=== PATIENT | male | born 2000 | race Caucasian/White ===

== ENCOUNTER 2018-03-16 10:58 | Emergency (ER) | payer OTHER ==
[2018-03-16 11:06] VITALS: BP 107/63; PULSE 63; TEMP 98.1; BMI 24.3
[2018-03-16] MEDS ORDERED: predniSONE 20 MG TABLET (UD) PO ONE (11:51)
[2018-03-16] MEDS ORDERED: ALBUTEROL SO4 2.5/IPRATROPIUM 0.5 INH SOL 3 ML VIAL.NEB. NEB ONE ×2 (11:51→11:54)
--- NOTE | 2018-03-16 11:53 | PDOC ---
History of Present Illness - General Chief Complaint: Respiratory Stated Complaint: CONGESTION Time Seen by Provider: 03/16/18 11:32 History Source: Patient, Family Exam Limitations: No Limitations - History of Present Illness Initial Comments: 03/16/18 11:53 Patient came in for evaluation of worsened ALLERGIC rhinitis, itchy eyes and congestion over the past few days. States also suffers from pollen ALLERGIES and is use some Benadryl with minimal resolved. Denies fever, denies any. The drainage from nose, but has a moist nonproductive cough. States last night felt tight and felt like he was wheezing. Timing/Duration: reports: getting worse Severity: reports: mild, moderate Possible Cause: Yes: no prior episodes, allergen exposure, chronic episodes, occasional episodes Modifying Factors: improves with: activity, coughing Associated Symptoms: reports: denies symptoms, cough, nasal congestion, wheezing. denies: fever/chills Past History - Travel Traveled outside of the country in the last 30 days: No Close contact w/someone who was outside of country & ill: No - Past Medical History Allergies/Adverse Reactions: Allergies Allergy/AdvReac Type Severity Reaction Status Date / Time No Known Allergies Allergy Verified 03/16/18 11:06 Home Medications: Ambulatory Orders Albuterol Sulfate Inhaler - [Ventolin HFA Inhaler -] 1 - 2 inh PO Q4H #1 inhaler 03/16/18 Cetirizine HCl/Pseudoephedrine [Allergy+Congestion Relf-D Tab] 1 each PO DAILY # 30 tab 03/16/18 predniSONE [Deltasone -] 20 mg PO BID #8 tablet 03/16/18 COPD: No - Suicide/Smoking/Psychosocial Hx Smoking History: Never smoked Review of Systems - Review of Systems Able to Perform ROS?: Yes Is the patient limited Beninese proficient: Yes Constitutional: Yes: Symptoms Reported, See HPI, Malaise. No: Fever HEENTM: Yes: Symptoms Reported, See HPI, Nose Congestion, Throat Pain Respiratory: Yes: Symptoms reported, See HPI, Cough, Wheezing ABD/GI: Yes: Symptoms Reported Musculoskeletal: Yes: Symptoms Reported, See HPI All Other Systems: Reviewed and Negative *Physical Exam - Vital Signs Last Vital Signs Temp Pulse Resp BP Pulse Ox 98.1 F 63 18 107/63 98 03/16/18 11:03 03/16/18 11:03 03/16/18 11:03 03/16/18 11:03 03/16/18 11:03 - Physical Exam General Appearance: Yes: Nourished, Appropriately Dressed, Apparent Distress, Mild Distress, Moderate Distress HEENT: positive: LIZ (lastly, tearing, and mildly erythematous), Pharynx Normal (no redness, swelling or exudate, has some posterior sinus drainage that looks to be thick and clear) Neck: positive: Supple, Lymphadenopathy (R), Lymphadenopathy (L). negative: Tender Respiratory/Chest: positive: Lungs Clear, Decreased Breath Sounds Cardiovascular: positive: Regular Rate Gastrointestinal/Abdominal: positive: Soft Musculoskeletal: positive: Normal Inspection. negative: CVA Tenderness Extremity: positive: Normal Capillary Refill, Normal Inspection Integumentary: positive: Dry, Warm, Pale Neurologic: positive: crap shooter II-XII NML intact Progress Note - Progress Note Progress Note: ALLERGIC rhinitis Medical Decision Making - Medical Decision Making 03/16/18 much improved after DuoNeb and prednisone. We'll continue antihistamine , prednisone and albuterol until symptoms resolve *DC/Admit/Observation/Transfer Diagnosis at time of Disposition: Allergic rhinitis Qualifiers: Allergic rhinitis trigger: unspecified Allergic rhinitis seasonality: seasonal Qualified Code(s): J30.2 - Other seasonal allergic rhinitis - Discharge Dispostion Disposition: HOME Condition at time of disposition: Stable Decision to Admit order: No - Prescriptions Prescriptions: Albuterol Sulfate Inhaler - [Ventolin HFA Inhaler -] 1 - 2 inh PO Q4H #1 inhaler Cetirizine HCl/Pseudoephedrine [Allergy+Congestion Relf-D Tab] 1 each PO DAILY # 30 tab predniSONE [Deltasone -] 20 mg PO BID #8 tablet - Referrals Referrals: Ok Funes MD [Primary Care Provider] - - Patient Instructions Printed Discharge Instructions: DI for Allergic Rhinitis Additional Instructions: Rest, drink lots of fluids: Teas, water, soups Saltwater gargles. Consider humidifier in room at night Steamy showers/seem to face break up mucus Avoid contact with allergens, exposure to pollens, close windows on a windy day Lots of handwashing and good hygiene Continue [id number] medications for symptomatic relief- may use allergic eyedrops for itching I Continue antihistamines daily until pollen season is over; Zyrtec, Claritin, Martha during the daytime and Benadryl at nighttime as will make sleepy Tylenol or Motrin for fever and pain Followup with private physician in one to 2 days as needed Consider following up with an manual plate filler/lock setter for skin testing and possible allergy shots Return to emergency department for worsened symptoms, fevers, dehydration - Post Discharge Activity Forms/Work/School Notes: Back to Work
[2018-03-16] MEDS ORDERED: predniSONE 20 MG TABLET (UD) ONE ×2 (11:54→11:57)
== END 2018-03-16 12:46 | disposition home or self-care (01) ==
LOC: JERFT 10:58
DX: J30.2 Other seasonal allergic rhinitis (principal)
CPT/HCPCS: 99281-25

== ENCOUNTER 2018-08-19 04:07 | Emergency (ER) | payer SELFPAY ==
--- NOTE | 2018-08-19 04:18 | PDOC ---
Medical Decision Making - Medical Decision Making 08/19/18 04:17 Patient seen by the advanced practice provider under my direct supervision. Ancillary testing reviewed as necessary. I agree with plan as outlined by the advanced practice provider. *DC/Admit/Observation/Transfer Diagnosis at time of Disposition: Cough - Referrals Referrals: Ok Funes MD [Primary Care Provider] - - Patient Instructions - Post Discharge Activity
--- NOTE | 2018-08-19 04:26 | PDOC ---
History of Present Illness - General Stated Complaint: COUGH Time Seen by Provider: 08/19/18 04:12 History Source: Patient Exam Limitations: No Limitations - History of Present Illness Initial Comments: 08/19/18 04:22 HISTORY OF PRESENT ILLNESS: 18-year-old male denies medical history of presents emergency department for evaluation of dry cough for 3 weeks which is worsened over the past 5 days. Reports when he lays down the cough gets worse. He is tried taking [id number] cough suppressants and expectorants with minimal relief of symptoms. Patient also reports worsening scratchiness in his throat. Patient reports abdominal pain which worsens with coughing. He denies any fevers , chills. No recent travel or sick contacts. PAST MEDICAL HISTORY: Denies past medical history SURGICAL HISTORY: Denies ALLERGIES: No known drug allergies REVIEW OF SYSTEMS General/Constitutional: Denies fever or chills. Denies weakness, weight change. HEENT: see HPI Cardiovascular: Denies chest pain or shortness of breath. Respiratory:see HPI Gastrointestinal: Denies nausea, vomiting, diarrhea or constipation. Denies rectal bleeding. Genitourinary: Denies dysuria, frequency, or change in urination. Musculoskeletal: Denies joint or muscle swelling or pain. Denies neck or back pain. Skin and breasts: Denies rash or easy bruising. Neurologic: Denies headache, vertigo, loss of consciousness, or loss of sensation. Psychiatric: Denies depression or anxiety. Endocrine: Denies increased thirst. Denies abnormal weight change. Hematologic/Lymphatic: Denies anemia, easy bleeding, or history of blood clots. Allergic/Immunologic: Denies hives or skin allergy. Denies latex allergy. PHYSICAL EXAM General Appearance: Well-appearing, appropriately dressed. No apparent distress , no intoxication. HEENT: EOMI, PERRLA. Nasal congestion present. Mildly erythematous oropharynx. No lesions or exudates present. Cobblestoning present in the posterior oropharynx. No conjunctival pallor. No photophobia, scleral icterus. Neck: Supple. Trachea midline. No tenderness, rigidity, carotid bruit, stridor , lymphadenopathy, or thyromegaly. Respiratory/Chest: Lungs CTAB. No shortness of breath, chest tenderness, respiratory distress, accessory muscle use. No crackles, rales, rhonchi, stridor , wheezing, dullness Cardiovascular: RRR. S1, S2. No JVD, murmur, bradycardia, tachycardia. Vascular Pulses: Dorsalis-Pedis (R): 2+, Dorsalis-Pedis (L): 2+ Gastrointestinal/Abdominal: Normal bowel sounds. Abdomen soft, non-distended. No tenderness or rebound tenderness. No organomegaly, pulsatile mass, guarding, hernia, hepatomegaly, splenomegaly. Lymphatic: No adenopathy, tenderness. Musculoskeletal/Extremities: Normal inspection. FROM of all extremities, normal capillary refill. Pelvis Stable. No CVA tenderness. No tenderness to extremities, pedal edema, swelling, erythema or deformity. Integumentary: Appropriate color, dry, warm. No cyanosis, erythema, jaundice or rash Neurologic: tank calibrator II-XII intact. Fully oriented, alert. Appropriate mood/affect. Motor strength 5/5. No appreciable EOM palsy, facial droop or sensory deficit. Past History - Past Medical History Allergies/Adverse Reactions: Allergies Allergy/AdvReac Type Severity Reaction Status Date / Time No Known Allergies Allergy Verified 08/19/18 05:09 Home Medications: Ambulatory Orders Albuterol Sulfate Inhaler - [Ventolin HFA Inhaler -] 1 - 2 inh PO Q4H #1 inhaler 03/16/18 Cetirizine HCl/Pseudoephedrine [Allergy+Congestion Relf-D Tab] 1 each PO DAILY # 30 tab 03/16/18 predniSONE [Deltasone -] 20 mg PO BID #8 tablet 03/16/18 Benzonatate [Tessalon Pearls -] 200 mg PO TID #42 cap 08/19/18 COPD: No - Suicide/Smoking/Psychosocial Hx Smoking History: Never smoked Medical Decision Making - Medical Decision Making 08/19/18 04:25 A/P: 18-year-old male with cough for 3 weeks H&P is most consistent with upper respiratory infection with irritated airways due to mucous drainage. Symptoms were present for 3 weeks I will get a chest x- ray to rule out pneumonia. 08/19/18 05:42 Chest x-ray as read by me: Angles clear. Cardiac silhouette is within normal limits. No focal deficits worsens or consolidations present. I discussed the physical exam findings, ancillary test results and final diagnoses with the patient. I answered all of the patient's questions. The patient was satisfied with the care received and felt comfortable with the discharge plan and treatment plan. The patient will call their primary care physician within 24 hours to arrange follow-up and will return to the Emergency Department with any new, persistent or worsening symptoms. *DC/Admit/Observation/Transfer Diagnosis at time of Disposition: URI (upper respiratory infection) Qualifiers: URI type: unspecified viral URI Qualified Code(s): J06.9 - Acute upper respiratory infection, unspecified - Discharge Dispostion Disposition: HOME Condition at time of disposition: Fair - Prescriptions Prescriptions: Benzonatate [Tessalon Pearls -] 200 mg PO TID #42 cap - Referrals Referrals: Ok Funes MD [Primary Care Provider] - - Patient Instructions Additional Instructions: Rest, drink lots of fluids: Teas, water, soups, Pedialyte Saltwater gargles Steamy showers/seem to face break up mucus Avoid contact with others until fevers and cough resolved Lots of handwashing and good hygiene Continue [id number] medications for symptomatic relief Tylenol or Motrin for fever and pain Followup with private physician in one to 2 days as needed Return to emergency department for worsened symptoms, fevers, dehydration - Post Discharge Activity Forms/Work/School Notes: Back to Work
[2018-08-19 05:09] VITALS: BP 135/78; PULSE 77; TEMP 97.5; BMI 25.9
== END 2018-08-19 05:50 | disposition home or self-care (01) ==
LOC: JER 04:07
DX: J06.9 Acute upper respiratory infection, unspecified (principal); B97.89 Other viral agents as the cause of diseases classified elsewhere
CPT/HCPCS: 71046-TC-FY; 99281-25

== ENCOUNTER 2019-07-30 10:27 | Emergency (ER) | payer OTHER ==
[2019-07-30 10:34] VITALS: BP 119/71; PULSE 64; TEMP 97.4; BMI 23.6
--- NOTE | 2019-07-30 10:52 | PDOC ---
History of Present Illness - General Chief Complaint: Sore Throat Stated Complaint: THROAT Time Seen by Provider: 07/30/19 10:46 History Source: Patient - History of Present Illness Initial Comments: 07/30/19 11:34 19-year-old male complaining of nausea, sore throat, abdominal pain, generalized malaise for the last 3 days.Denies vomiting, diarrhea, fever, urinary symptoms, testicular pain Patient has a past medical history of asthma Past History - Past Medical History Allergies/Adverse Reactions: Allergies Allergy/AdvReac Type Severity Reaction Status Date / Time No Known Allergies Allergy Verified 07/30/19 10:34 Home Medications: Ambulatory Orders Albuterol Sulfate Inhaler - [Ventolin HFA Inhaler -] 1 - 2 inh PO Q4H #1 inhaler 03/16/18 Cetirizine HCl/Pseudoephedrine [Allergy+Congestion Relf-D Tab] 1 each PO DAILY #30 tab 03/16/18 predniSONE [Deltasone -] 20 mg PO BID #8 tablet 03/16/18 Benzonatate [Tessalon Pearls -] 200 mg PO TID #42 cap 08/19/18 COPD: No - Psycho Social/Smoking Cessation Hx Smoking History: Never smoked Have you smoked in the past 12 months: No Information on smoking cessation initiated: No Hx Alcohol Use: No Drug/Substance Use Hx: No *Physical Exam - Vital Signs Last Vital Signs Temp Pulse Resp BP Pulse Ox 97.4 F L 64 17 119/71 99 07/30/19 10:32 07/30/19 10:32 07/30/19 10:32 07/30/19 10:32 07/30/19 10:32 - Physical Exam General Appearance: Yes: Appropriately Dressed HEENT: positive: Pharyngeal Erythema (with tonsillar edema. no kissing tonsils) Respiratory/Chest: positive: Lungs Clear, Normal Breath Sounds Gastrointestinal/Abdominal: positive: Normal Bowel Sounds, Tender (RLQ pain), Soft Extremity: positive: Normal Capillary Refill, Normal Inspection, Normal Range of Motion Integumentary: positive: Normal Color, Dry, Warm Neurologic: positive: Fully Oriented, Alert, Normal Mood/Affect ED Treatment Course - LABORATORY CBC & Chemistry Diagram: 07/30/19 11:50 07/30/19 11:50 Medical Decision Making - Medical Decision Making A: abdominal pain; strep P: cbc cmp rapid strep IVF zofran tylenol 07/30/19 11:42 patient signed out to Elida MARES 07/30/19 14:49 Discharge - Discharge Information Problems reviewed: Yes Clinical Impression/Diagnosis: Viral URI Abdominal pain Qualifiers: Abdominal location: right lower quadrant Qualified Code(s): R10.31 - Right lower quadrant pain Condition: Stable Disposition: HOME - Follow up/Referral - Patient Discharge Instructions Patient Printed Discharge Instructions: DI for Viral Upper Respiratory Infection -- Adult, DI for Abdominal Pain-Adult Additional Instructions: Thank you for choosing [facility]. It was a pleasure taking care of you. You have viral infection Recommend salt water gargles, lozenges, lemon honey tea, Robitussin as needed for symptoms Recommend rest and hydration Follow-up with your doctor in 2 days Return to the Emergency Department if your symptoms worsen or persist or have other concerning symptoms. - Post Discharge Activity
[2019-07-30] MEDS ORDERED: SODIUM CHLORIDE 1,000 ML IV STA (11:25)
[2019-07-30] MEDS ORDERED: ONDANSETRON *ODT* 4 MG TABLET SL ONE (11:25)
[2019-07-30] MEDS ORDERED: ACETAMINOPHEN 1000 MG/100 ML VIAL (NON FORMULARY) IVPB ONE (11:28)
[2019-07-30] MEDS ORDERED: SODIUM CHLORIDE FOR INHALATION 3 ML VIAL.NEB IH ONE (11:54)
[2019-07-30] MEDS ORDERED: ONDANSETRON *ODT* 4 MG TABLET ONE (12:09)
[2019-07-30] MEDS ORDERED: ACETAMINOPHEN INJECTION 100 ML IVPB ONE (12:09)
[2019-07-30 12:10] LABS: BASO % 0.6 % (0-2.0); EOS % 2.5 % (0-4.5); HEMATOCRIT 45.6 % (35.4-49); HEMOGLOBIN 15.9 GM/dL (11.7-16.9); LYMPH % 21.7 % (8-40); MCH 31.1 pg (25.7-33.7); MCHC 34.9 g/dl (32.0-35.9); MEAN CELL VOLUME 89.2 fl (80-96); MEAN PLT VOLUME 7.4 fl (7.5-11.1); NEUT % 65.2 % (42.8-82.8); PLATELET COUNT 200 K/MM3 (134-434); RBC 5.11 M/mm3 (4.00-5.60); RDW 12.2 % (11.9-15.9)
--- NOTE | 2019-07-30 12:10 | PDOC ---
*Physical Exam - Vital Signs Last Vital Signs Temp Pulse Resp BP Pulse Ox 97.4 F L 64 17 119/71 99 07/30/19 10:32 07/30/19 10:32 07/30/19 10:32 07/30/19 10:32 07/30/19 10:32 - Physical Exam General Appearance: No: Apparent Distress HEENT: positive: Normal Voice, Pharyngeal Erythema (minimal), Nasal Congestion. negative: Muffled/Hoarse voice, Tonsillar Exudate, Tonsillar Erythema Respiratory/Chest: positive: Lungs Clear, Normal Breath Sounds. negative: Respiratory Distress Cardiovascular: positive: Regular Rhythm, Regular Rate, S1, S2. negative: Murmur Gastrointestinal/Abdominal: positive: Tender (along RLQ), Soft. negative: Distended Integumentary: positive: Normal Color Neurologic: positive: Alert <Elida Cifuentes - Last Filed: 07/30/19 12:51> - Vital Signs Last Vital Signs Temp Pulse Resp BP Pulse Ox 97.4 F L 64 17 119/71 99 07/30/19 10:32 07/30/19 10:32 07/30/19 10:32 07/30/19 10:32 07/30/19 10:32 <Chico Orosco - Last Filed: 07/30/19 14:54> ED Treatment Course - LABORATORY CBC & Chemistry Diagram: 07/30/19 11:50 07/30/19 11:50 - RADIOLOGY Radiology Studies Ordered: Category Date Time Status PELVIC / BLADDER US [US] Stat Ultrasound 07/30/19 11:54 Ordered <Elida Cifuentes - Last Filed: 07/30/19 12:51> - LABORATORY CBC & Chemistry Diagram: 07/30/19 11:50 07/30/19 11:50 - ADDITIONAL ORDERS Additional order review: Laboratory Results 07/30/19 11:50 Sodium 140 Potassium 4.4 Chloride 104 Carbon Dioxide 33 H Anion Gap 3 L BUN 14.8 Creatinine 0.9 Est GFR (CKD-EPI)AfAm 141.01 Est GFR (CKD-EPI)NonAf 121.66 Random Glucose 80 Calcium 9.2 Total Bilirubin 0.5 AST 15 ALT 51 Alkaline Phosphatase 57 Total Protein 7.7 Albumin 4.3 Lipase 110 07/30/19 11:50 RBC 5.11 MCV 89.2 MCHC 34.9 RDW 12.2 MPV 7.4 L Neutrophils % 65.2 Lymphocytes % 21.7 Monocytes % 10.0 Eosinophils % 2.5 Basophils % 0.6 - Medications Given in the ED: ED Medications Discontinued Medications Generic Name Dose Route Start Last Admin Trade Name Percy PRN Reason Stop Dose Admin Acetaminophen 1,000 mg 07/30/19 11:28 07/30/19 12:10 Ofirmev Injection - IVPB 07/30/19 11:29 1,000 mg ONCE ONE Administration Sodium Chloride 1,000 mls @ 1,000 mls/hr 07/30/19 11:25 07/30/19 12:10 Normal Saline - IV 07/30/19 12:24 1,000 mls/hr ASDIR STA Administration Ondansetron HCl 4 mg 07/30/19 11:25 07/30/19 12:10 Zofran Odt - SL 07/30/19 11:26 4 mg ONCE ONE Administration Sodium Chloride 3 ml 07/30/19 11:54 07/30/19 12:37 Normal Saline For Inhalation - IH 07/30/19 11:55 3 ml ONCE ONE Administration <Chico Orosco - Last Filed: 07/30/19 14:54> Medical Decision Making - Medical Decision Making Patient signed out to me by CESAR Bernabe Patient with 3 days for sore throat, dry cough along with RLQ abdominal pain, nausea and decreased appetite; denies fever, vomiting, diarrhea, urinary sxs, testicular pain; denies prior abdominal surgeries Rapid strep negative Patient pending results of labs Will get Zofran for nausea and Tylenol for pain Patient also endorses dry cough and dryness in throat; lungs CTAB; will trial saline neb and reassess 07/30/19 12:09 Labs reviewed unremarkable On reassessment abdomen is soft and nontender Patient denies any pain and is feeling better Return precautions discussed with patient Stable for discharge 07/30/19 12:51 <Elida Cifuentes - Last Filed: 07/30/19 12:51> - Medical Decision Making 07/30/19 14:53 The patient was seen and evaluated in conjunction with VISHNU Cifuentes under my direct supervision, ancillary studies were reviewed.I agree with the plan as outlined by VISHNU Cifuentes . <Chico Orosco - Last Filed: 07/30/19 14:54> Discharge - Discharge Information Problems reviewed: Yes - Admission No - Additional Discharge Information Prescription Drug Monitoring Program (I-STOP) results: I-STOP not reviewed <Elida Cifuentes - Last Filed: 07/30/19 12:51> <Chico Orosco - Last Filed: 07/30/19 14:54> - Discharge Information Clinical Impression/Diagnosis: Viral URI Abdominal pain Qualifiers: Abdominal location: right lower quadrant Qualified Code(s): R10.31 - Right lower quadrant pain Condition: Stable Disposition: HOME - Patient Discharge Instructions Patient Printed Discharge Instructions: DI for Viral Upper Respiratory Infection -- Adult, DI for Abdominal Pain-Adult Additional Instructions: Thank you for choosing [facility]. It was a pleasure taking care of you. You have viral infection Recommend salt water gargles, lozenges, lemon honey tea, Robitussin as needed for symptoms Recommend rest and hydration Follow-up with your doctor in 2 days Return to the Emergency Department if your symptoms worsen or persist or have other concerning symptoms.
[2019-07-30 12:39] LABS: ALBUMIN 4.3 g/dl (3.4-5.0); BILIRUBIN,TOTAL 0.5 mg/dL (0.2-1); BLOOD UREA NITROGEN 14.8 mg/dL (7-18); CALCIUM 9.2 mg/dL (8.5-10.1); CREATININE 0.9 mg/dL (0.55-1.3); POTASSIUM 4.4 mmol/L (3.5-5.1); TOT PROT 7.7 g/dl (6.4-8.2)
== END 2019-07-30 12:53 | disposition home or self-care (01) ==
LOC: JER 10:27 → JERFT 10:27 → JER 12:53
PROC: 3E033NZ Introduction of Analgesics, Hypnotics, Sedatives into Peripheral Vein, Percutaneous Approach (ICD-10-PCS; principal; 2019-07-30)
PROC: 3E0F7GC Introduction of Other Therapeutic Substance into Respiratory Tract, Via Natural or Artificial Opening (ICD-10-PCS; 2019-07-30)
DX: J06.9 Acute upper respiratory infection, unspecified (principal); B97.89 Other viral agents as the cause of diseases classified elsewhere; R10.31 Right lower quadrant pain
CPT/HCPCS: 36415; 80053; 83690; 85025; 87070; 87077; 87880; 99284-25; J0131; J7030; Q0162

== ENCOUNTER 2020-11-28 01:27 | Observation (INO) | payer OTHER ==
[2020-11-28 01:48] VITALS: BMI 25.1
[2020-11-28 04:19] LABS: BASO % 0.3 % (0-2.0); EOS % 0.6 % (0-4.5); HEMATOCRIT 42.3 % (35.4-49); HEMOGLOBIN 14.8 GM/dL (11.7-16.9); LYMPH % 13.6 % (8-40); MCH 31.2 pg (25.7-33.7); MCHC 35.1 g/dl (32.0-35.9); MEAN CELL VOLUME 88.9 fl (80-96); MEAN PLT VOLUME 7.6 fl (7.5-11.1); MONO % 6.8 % (3.8-10.2); NEUT % 78.7 % (42.8-82.8); PLATELET COUNT 200 10^3/uL (134-434); RBC 4.76 M/mm3 (4.00-5.60); RDW 11.9 % (11.9-15.9); WHITE BLOOD COUNT 8.5 K/mm3 (4.0-10.0)
[2020-11-28 04:37] LABS: CHLORIDE 105 mmol/L (98-107); SODIUM 139 mmol/L (136-145)
[2020-11-28 04:39] LABS: ANION GAP 6 MMOL/L (8-16); CALCIUM 9.1 mg/dL (8.5-10.1); CO2 29 mmol/L (21-32)
[2020-11-28 04:40] LABS: ALBUMIN 4.4 g/dl (3.4-5.0); BLOOD UREA NITROGEN 19.2 mg/dL (7-18); GLUCOSE,RANDOM 99 mg/dL (74-106)
[2020-11-28 04:43] LABS: CREATININE 0.9 mg/dL (0.55-1.3); SGOT/AST 14 U/L (15-37); SGPT/ALT 35 U/L (13-61)
[2020-11-28 04:44] LABS: BILIRUBIN,TOTAL 0.7 mg/dL (0.2-1)
[2020-11-28 04:45] LABS: TOT PROT 7.5 g/dl (6.4-8.2)
[2020-11-28 04:46] LABS: ALK PHOS 51 U/L (45-117)
[2020-11-28] MEDS ORDERED: SODIUM CHLORIDE 0.9% 500 ML INFUS.BAG IV ONE (06:04)
[2020-11-28 07:20] VITALS: TEMP 97.9
[2020-11-28] MEDS ORDERED: ACETAMINOPHEN 325 MG TABLET (FP) PO PRN (07:45)
[2020-11-28] MEDS ORDERED: SODIUM CHLORIDE 1,000 ML IV SCH (07:45)
[2020-11-28 14:08] VITALS: BP 108/52; PULSE 56
== END 2020-11-28 14:08 | disposition left against medical advice (07) ==
LOC: JER 01:27 → JERBED 06:11
PROC: 3E0337Z Introduction of Electrolytic and Water Balance Substance into Peripheral Vein, Percutaneous Approach (ICD-10-PCS; principal; 2020-11-28)
DX: R55 Syncope and collapse (principal); F12.10 Cannabis abuse, uncomplicated
CPT/HCPCS: 36415; 70450-TC; 71045-TC-FY; 72125-TC; 80053; 82550; 84484; 85025; 85651; 86140; 93005; 93010; 96360; 96361; 99285-25; C9803; G0378; U0003; U0005